=== PATIENT | male | born 1955 | race Two or more races ===

== ENCOUNTER 2024-07-13 09:16 | Outpatient (CLI) | payer OTHER | END 2024-07-13 09:26 | disposition home or self-care (01) | LOC: RAD 09:16 | PROVIDERS: ATTEND General Practice | DX: M25.561 Pain in right knee (principal) ==

== ENCOUNTER 2024-09-17 07:24 | Outpatient (CLI) | payer OTHER | END 2024-09-17 07:28 | disposition home or self-care (01) | LOC: SONOGRAMA 07:24 | PROVIDERS: ATTEND General Practice | DX: N20.0 Calculus of kidney (principal); R10.32 Left lower quadrant pain; R10.31 Right lower quadrant pain ==

== ENCOUNTER 2024-09-30 11:47 | Outpatient (CLI) | payer OTHER | END 2024-09-30 11:54 | disposition home or self-care (01) | LOC: RAD 11:47 | DX: I11.9 Hypertensive heart disease without heart failure (principal) ==

== ENCOUNTER 2024-11-08 01:03 | Inpatient (IN) | payer OTHER ==
[~2024-11-08] VITALS: Ht 180.3 cm; Wt 80.7 kg
[2024-11-08] VITALS (11 sets, daily range): BP systolic 79–115; BP diastolic 52–84; O2SAT 99–100
[2024-11-08] MEDS ORDERED: 0.9 % SODIUM CHLORIDE 1,000 ML IV STA ×2 (01:32→01:43)
[2024-11-08] MEDS ORDERED: DILTIAZEM HCL 25 MG/5 ML VIAL IV ONE (01:33)
[2024-11-08] MEDS ORDERED: DILTIAZEM HCL 50 MG/10 ML VIAL IV STA (01:33)
[2024-11-08 02:13] LABS: HEMATOCRIT 43.7 % (39.0-48.0); HEMOGLOBIN 14.6 g/dL (13-16.00); MEAN CELL VOLUME 85.7 fL (80.0-100.00); MEAN CORPUSCULAR HEMOGLOBIN 28.7 pg (27.00-32.0); MEAN CORPUSCULAR HGB CONC 33.5 g/dl (32.0-36.0); PLATELET COUNT 232 K/uL (150-450); RED CELL DISTRIBUTION WIDTH 14.6 % (11.5-14.5)
[2024-11-08] MEDS ORDERED: DILTIAZEM HCL 125 MG in 0.9 % SODIUM CHLORIDE 100 ML IV SCH ×2 (02:15→17:45)
[2024-11-08 02:28] LABS: INR 0.98; PARTIAL THROMBOPLASTIN TIME 24.6 SECONDS (22.0-34.0); PROTHROMBIN TIME 10.7 SECONDS (9.0-11.5)
[2024-11-08 02:33] LABS: ALBUMIN 3.7 gm/dL (3.4-5.0); BILIRUBIN TOTAL 0.43 mg/dL (0.3-1.2); CREATININE SERUM 0.63 mg/dL (0.70-1.30); GFR 126.65; GLOBULINA 3.2 G/DL (2.4-3.5); POTASSIUM 4.19 mEq/L (3.5-5.1); TOTAL PROTEIN 6.9 gm/dL (6.4-8.2)
[2024-11-08 02:41] LABS: CHOL HDL RATIO 8.2 (0-5.0)
[2024-11-08] MEDS ORDERED: APIXABAN 5 MG TABLET PO ONE (04:00)
[2024-11-08 08:01] LABS: ABG PH 7.413 (7.35-7.45); ABG PO2 94.8 mmHg (80-100); ABG pCO2 35.3 mmHg (35-45); BASE EXCESS -1.9 mmol/l; BICARBONATE 22.1 mmol/l (23-25); SaO2 97.4 %; Tco2 23.1 mmol/l
[2024-11-08 08:59] LABS: allen test SATISFACTORY; mode ROOM AIR; o2 21 %; puncture site RADIAL LEFT
[2024-11-08] MEDS ORDERED: CHLORHEXIDINE GLUCONATE 120 ML BOTTLE TOP ONE (09:31)
[2024-11-08] MEDS ORDERED: ENOXAPARIN SODIUM 80 MG/0.8 ML SYRINGE SUBCUTANEO SCH (17:41)
[2024-11-08] MEDS ORDERED: ACETAMINOPHEN 500 MG GEL..CAP PO PRN (17:45)
[2024-11-08] MEDS ORDERED: 0.9 % SODIUM CHLORIDE 1,000 ML IV SCH (17:45)
[2024-11-08] MEDS ORDERED: ENOXAPARIN SODIUM 80 MG/0.8 ML SYRINGE SUBCUTANEO ONE (18:21)
[2024-11-08] MEDS ORDERED: METOPROLOL TARTRATE 25 MG TABLET PO ONE ×2 (18:22→18:30)
[2024-11-08 19:21] LABS: MAGNESIUM 1.9 mg/dL (1.8-2.4); PHOSPHOROUS 3.2 mg/dL (2.5-4.9)
[2024-11-08 20:05] LABS: PH,URINE 5.5 (5.0-8.0); URINE APPEARANCE Clear; URINE BILIRRUBIN Negative (NEGATIVE); URINE BLOOD Negative; URINE COLOR Yellow; URINE GLUCOSE Negative (NEGATIVE); URINE KETONE 15 (NEGATIVE); URINE LEUKOCYTE Negative; URINE NITRATE Negative; URINE PROTEIN Negative (NEGATIVE); URINE UROBILINOGEN 0.2 E.U./dl
[2024-11-08 20:14] LABS: URINE BACTERIA 3.6 uL (0.0-1933); URINE CAST 0.14 uL (0.0-1.40); URINE EPITHELIAL CELLS 0.4 uL (0.0-38.8); URINE RBC 1.3 uL (0.0-20.8); URINE WBC 0.7 uL (0.0-23.2)
[2024-11-09] VITALS (12 sets, daily range): BP systolic 76–136; BP diastolic 53–85; O2SAT 96–100
[2024-11-09] MEDS ORDERED: FAMOTIDINE/PF 20 MG in 0.9 % SODIUM CHLORIDE 8 ML IV PUSH SCH (09:00)
[2024-11-10 00:11] VITALS: O2SAT 96
[2024-11-10] MEDS ORDERED: APIXABAN 5 MG TABLET PO SCH (09:00)
[2024-11-10] MEDS ORDERED: LOSARTAN POTASSIUM 25 MG TABLET PO SCH (09:00)
[2024-11-10] MEDS ORDERED: METOPROLOL TARTRATE 25 MG TABLET PO SCH (09:00)
== END 2024-11-10 10:30 | disposition home or self-care (01) | DRG 310 ==
LOC: ER 01:04 → ICU-2 18:28 → MEDI 11-09 12:30
PROVIDERS: General Practice; ADMIT Student in an Organized Health Care Education/Training Program; ATTEND Student in an Organized Health Care Education/Training Program
PROC: B246ZZZ Ultrasonography of Right and Left Heart (ICD-10-PCS; principal; 2024-11-08)
PROC: 4A12X4Z Monitoring of Cardiac Electrical Activity, External Approach (ICD-10-PCS; 2024-11-08)
DX: I48.20 Chronic atrial fibrillation, unspecified (principal); I11.9 Hypertensive heart disease without heart failure

== ENCOUNTER 2024-11-27 09:28 | Outpatient (CLI) | payer OTHER | END 2024-11-27 09:38 | disposition home or self-care (01) | LOC: TOM 09:28 | PROVIDERS: ATTEND Internal Medicine Pulmonary Disease | DX: J44.1 Chronic obstructive pulmonary disease with (acute) exacerbation (principal); Z87.891 Personal history of nicotine dependence ==